=== PATIENT | female | born 1955 | race Caucasian/White ===

== ENCOUNTER 2020-12-02 06:00 | Outpatient (RCR) | payer MEDICARE, OTHER, SELFPAY | END 2020-12-24 23:59 | disposition home or self-care (01) | LOC: GPT 06:00 | PROVIDERS: Referring Provider Neurological Surgery; Visit Provider Neurological Surgery | DX: M54.16 Radiculopathy, lumbar region (principal) | CPT/HCPCS: 97032; 97110; 97140; 97161; 97530 ==

== ENCOUNTER 2020-12-25 06:00 | Outpatient (RCR) | payer MEDICARE, OTHER, SELFPAY | END 2021-01-24 23:59 | disposition home or self-care (01) | LOC: GPT 06:00 | PROVIDERS: Referring Provider Neurological Surgery; Visit Provider Neurological Surgery | DX: M54.16 Radiculopathy, lumbar region (principal) | CPT/HCPCS: 97032; 97110; 97112; 97116; 97140; 97164; 97530 ==

== ENCOUNTER 2021-01-25 06:00 | Outpatient (RCR) | payer MEDICARE, OTHER, SELFPAY | END 2021-02-23 23:59 | disposition home or self-care (01) | LOC: GPT 06:00 | PROVIDERS: Referring Provider Neurological Surgery; Visit Provider Neurological Surgery | DX: M54.16 Radiculopathy, lumbar region (principal) | CPT/HCPCS: 97032; 97110; 97112; 97140; 97164; 97530 ==

== ENCOUNTER 2021-02-24 06:00 | Outpatient (RCR) | payer MEDICARE, OTHER, SELFPAY | END 2021-03-26 23:59 | disposition home or self-care (01) | LOC: GPT 06:00 | PROVIDERS: Referring Provider Neurological Surgery; Visit Provider Neurological Surgery | DX: M54.16 Radiculopathy, lumbar region (principal) | CPT/HCPCS: 97032; 97110; 97112; 97140; 97530 ==

== ENCOUNTER → 2021-04-08 13:14 | Outpatient (BNVA) | payer MEDICARE, OTHER, SELFPAY | PROVIDERS: Visit Provider Nurse Practitioner Family | DX: Z20.822 Contact with and (suspected) exposure to COVID-19 (principal) | CPT/HCPCS: 87635 ==

== ENCOUNTER → 2021-07-13 13:59 | Outpatient (BNVA) | payer MEDICARE, OTHER, SELFPAY | PROVIDERS: Visit Provider Nurse Practitioner Family | DX: Z20.822 Contact with and (suspected) exposure to COVID-19 (principal) | CPT/HCPCS: 87635 ==

== ENCOUNTER 2022-02-21 06:00 | Outpatient (RCR) | payer MEDICARE, OTHER, SELFPAY | END 2022-02-23 23:59 | disposition home or self-care (01) | LOC: GPT 06:00 | PROVIDERS: Referring Provider Physician Assistant; Visit Provider Physician Assistant | DX: Z47.89 Encounter for other orthopedic aftercare (principal); Z98.890 Other specified postprocedural states | CPT/HCPCS: 97032; 97110; 97140; 97162 ==

== ENCOUNTER 2022-02-24 06:00 | Outpatient (RCR) | payer MEDICARE, OTHER, SELFPAY | END 2022-03-26 23:59 | disposition home or self-care (01) | LOC: GPT 06:00 | PROVIDERS: Referring Provider Physician Assistant; Visit Provider Physician Assistant | DX: Z47.89 Encounter for other orthopedic aftercare (principal); Z98.890 Other specified postprocedural states | CPT/HCPCS: 97110; 97112; 97140; G0283 ==

== ENCOUNTER 2022-03-27 06:00 | Outpatient (RCR) | payer MEDICARE, OTHER, SELFPAY | END 2022-04-26 23:59 | disposition home or self-care (01) | LOC: GPT 06:00 | PROVIDERS: Referring Provider Physician Assistant; Visit Provider Physician Assistant | DX: Z98.890 Other specified postprocedural states (principal) | CPT/HCPCS: 97110; 97112; 97140; 97164; G0283 ==

== ENCOUNTER 2022-04-27 06:00 | Outpatient (RCR) | payer MEDICARE, OTHER, SELFPAY | END 2022-05-26 23:59 | disposition home or self-care (01) | LOC: GPT 06:00 | PROVIDERS: Visit Provider Physician Assistant | DX: Z98.890 Other specified postprocedural states (principal) | CPT/HCPCS: 97110; 97112; 97140 ==

== ENCOUNTER 2022-05-27 06:00 | Outpatient (RCR) | payer MEDICARE, OTHER, SELFPAY | END 2022-06-26 23:59 | disposition home or self-care (01) | LOC: GPT 06:00 | PROVIDERS: Visit Provider Physician Assistant | DX: Z98.890 Other specified postprocedural states (principal) | CPT/HCPCS: 97110; 97140; 97164; G0283 ==

== ENCOUNTER → 2022-09-13 10:57 | Outpatient (BNVA) | payer MEDICARE, OTHER, SELFPAY | PROVIDERS: Visit Provider Specialist | DX: G43.711 Chronic migraine without aura, intractable, with status migrainosus (principal); F07.81 Postconcussional syndrome; G44.309 Post-traumatic headache, unspecified, not intractable; R20.0 Anesthesia of skin; R20.2 Paresthesia of skin; M54.2 Cervicalgia; M54.50 Low back pain, unspecified; R41.89 Other symptoms and signs involving cognitive functions and awareness; M43.26 Fusion of spine, lumbar region | CPT/HCPCS: 96116; 99205 ==

== ENCOUNTER 2022-10-04 13:54 | Outpatient (CLI) | payer MEDICARE, OTHER, SELFPAY ==
--- NOTE | 2022-10-04 14:30 | MR_ITS ---
WS: [id number] MRI CERVICAL SPINE NONCONTRAST TECHNIQUE: Sagittal T1, T2 and STIR imaging. Axial T2, gradient, and fiesta imaging. CLINICAL INFORMATION: F07.81 - Postconcussional syndrome COMPARISON: None. FINDINGS: Straightening of the normal cervical lordosis. Slight anterolisthesis C7 on T1. Cord signal is normal . C2-C3: Mild facet arthropathy. Mild bilateral bony foraminal narrowing. Spinal canal is patent. C3-C4: Disc osteophytic ridging. Moderate LEFT facet arthropathy. Mild LEFT and no RIGHT foraminal na rrowing. Spinal canal is patent. C4-C5: Moderate LEFT bony foraminal narrowing. Moderate LEFT facet arthropathy. Spinal canal is paten t. RIGHT foramen is patent. C5-C6: Disc osteophytic ridging. Slight effacement of ventral thecal sac. C6-C7: Mild disc bulging. Mild LEFT foraminal narrowing. Spinal canal and RIGHT foramen are patent. M ild facet arthropathy. C7-T1: Slight anterolisthesis C7 on T1. Mild disc bulging. Mild RIGHT greater than LEFT bony foramina l narrowing. Mild facet arthropathy. Visualized brain stem structures: Normal. Prevertebral soft tissues: Normal. MR/MR cervical spin wo con* [id number] IMPRESSION: 1. Straightening of the normal cervical lordosis. Cord signal is normal. 2. No significant central canal stenosis. 3. Moderate LEFT bony foraminal narrowing LEFT C4-C5, recommend correlation LE FT C5 nerve root symptoms. Moderate LEFT facet arthropathy at this level. 4. Otherwise mild foraminal narrowing described above. 5. Mild disc bulging C4-C5 and C5-C6. Shallow central protrusion C5-C6 with sl ight effacement of ventral thecal sac. 6. Trace anterolisthesis C3 on C4. Grade 1 anterolisthesis C7 on T1.
--- NOTE | 2022-10-04 15:15 | MR_ITS ---
WS: [id number] MRI LUMBAR SPINE NONCONTRAST HISTORY: F07.81 - Postconcussional syndrome COMPARISON: None available. TECHNIQUE: Sagittal and axial multisequence imaging is submitted. Mild increase in thoracic kyphosis. Increase in the lumbar lordosis. Prior posterior lumbar fusion from L3 through L5. Large laminectomy defect at the L3 and L4 levels. Moderate disc space narrowing at L4-5. No acute fractures. Conus terminates normally at L1-2 disc level. There is a small amount of increased T2 signal in the soft tissues at the L4-5 disc level. Edema exte nds inferiorly toward the sacrum. This is in the paravertebral soft tissues and may be a small amount of soft tissue injury. There is slight increased amount of fluid signal extending to the LEFT sofia ctomy defect and facet joint on the LEFT at L4-5. L1-L2: Slight retrolisthesis of L1. Bilateral facet joint arthritis, RIGHT greater than LEFT. Very mi ld subarticular recess and foraminal narrowing. L2-L3: Mild annular disc bulge with a LEFT foraminal disc protrusion. Asymmetric ligamentum flavum hy pertrophy encroaching into the thecal sac and facet joint arthritis. Moderate central and bilateral s ubarticular recess stenosis. Mild bilateral foraminal stenosis. L3-L4: Large posterior laminectomy defect. No stenosis or disc protrusions. L4-L5: Widely patent thecal sac with clumping of the nerve roots. Large posterior laminectomy defect. Small vertebral body foraminal osteophytes encroach towards the subarticular recesses. No significan t stenosis identified. L5-S1: No stenosis. No disc protrusions. MR/MR lumbar spine wo con* [id number] IMPRESSION: 1. Status post L3-L5 posterior lumbar fusion with laminectomies at L3 and L4. 2. No high-grade central stenosis. 3. LEFT foraminal disc protrusion at L2-3 without significant stenosis. The di sc does not contact the nerve roots. 4. Moderate central and bilateral subarticular recess and mild foraminal steno sis at L2-3. 5. Small amount of edema in the paravertebral soft tissues at the L4-5 level. Edema extends inferior to the upper sacrum. Edema also extends slightly greate r into the LEFT laminectomy defect into the LEFT facet joint. Could be posttrau matic soft tissue injury. The hardware and osseous structures are not well visu alized on MRI due to the artifact from the hardware. The alignment appears appr opriate.
== END 2022-10-04 13:55 | disposition home or self-care (01) ==
LOC: RAD 13:57
PROVIDERS: Visit Provider Specialist
DX: G44.309 Post-traumatic headache, unspecified, not intractable (principal); F07.81 Postconcussional syndrome
CPT/HCPCS: 72141; 72148

== ENCOUNTER → 2022-11-27 11:13 | Outpatient (BNVA) | payer MEDICARE, OTHER, SELFPAY | PROVIDERS: Referring Provider Specialist; Visit Provider Specialist | DX: G43.711 Chronic migraine without aura, intractable, with status migrainosus (principal); G56.03 Carpal tunnel syndrome, bilateral upper limbs; F07.81 Postconcussional syndrome; R41.89 Other symptoms and signs involving cognitive functions and awareness; G56.21 Lesion of ulnar nerve, right upper limb; M54.2 Cervicalgia | CPT/HCPCS: 95910; 95913; 99214 ==

== ENCOUNTER 2022-12-20 06:00 | Outpatient (RCR) | payer MEDICARE, OTHER, SELFPAY | END 2022-12-24 23:59 | disposition home or self-care (01) | LOC: GPT 06:00 | PROVIDERS: Visit Provider Specialist | DX: G56.20 Lesion of ulnar nerve, unspecified upper limb (principal) | CPT/HCPCS: 97110; 97112; 97140; 97161 ==

== ENCOUNTER 2022-12-25 06:00 | Outpatient (RCR) | payer MEDICARE, OTHER, SELFPAY | END 2023-01-24 23:59 | disposition home or self-care (01) | LOC: GPT 06:00 | PROVIDERS: Visit Provider Specialist | DX: M54.50 Low back pain, unspecified (principal) | CPT/HCPCS: 97110; 97112; 97140 ==

== ENCOUNTER 2023-01-25 01:00 | Outpatient (RCR) | payer MEDICARE, OTHER, SELFPAY | END 2023-02-23 23:59 | disposition home or self-care (01) | LOC: GPT 01:00 | PROVIDERS: Visit Provider Specialist | DX: M54.50 Low back pain, unspecified (principal) | CPT/HCPCS: 97110; 97140; 97164; 97530 ==

== ENCOUNTER 2023-02-24 06:00 | Outpatient (RCR) | payer MEDICARE, OTHER, SELFPAY | END 2023-03-26 23:59 | disposition home or self-care (01) | LOC: GPT 06:00 | PROVIDERS: Visit Provider Specialist | DX: M54.50 Low back pain, unspecified (principal) | CPT/HCPCS: 97110; 97140; 97164 ==

== ENCOUNTER → 2023-05-29 13:14 | Outpatient (BNVA) | payer MEDICARE, OTHER, SELFPAY | PROVIDERS: Visit Provider Specialist | DX: M54.50 Low back pain, unspecified (principal); G56.21 Lesion of ulnar nerve, right upper limb; G56.03 Carpal tunnel syndrome, bilateral upper limbs; G43.711 Chronic migraine without aura, intractable, with status migrainosus; F07.81 Postconcussional syndrome | CPT/HCPCS: 99213; 99214 ==

== ENCOUNTER 2023-06-15 06:00 | Outpatient (RCR) | payer MEDICARE, OTHER, SELFPAY | END 2023-06-26 23:59 | disposition home or self-care (01) | LOC: GPT 06:00 | PROVIDERS: Visit Provider Specialist | DX: M54.50 Low back pain, unspecified (principal) | CPT/HCPCS: 97110; 97140; 97162 ==

== ENCOUNTER 2023-06-27 06:00 | Outpatient (RCR) | payer MEDICARE, OTHER, SELFPAY | END 2023-07-26 23:59 | disposition home or self-care (01) | LOC: GPT 06:00 | PROVIDERS: Visit Provider Specialist | DX: M54.50 Low back pain, unspecified (principal) | CPT/HCPCS: 97110; 97112; 97140 ==

== ENCOUNTER 2023-07-27 06:00 | Outpatient (RCR) | payer MEDICARE, OTHER, SELFPAY | END 2023-08-26 23:59 | disposition home or self-care (01) | LOC: GPT 06:00 | PROVIDERS: Visit Provider Specialist | DX: M54.50 Low back pain, unspecified (principal) | CPT/HCPCS: 97110; 97112; 97140; 97164; 97530 ==

== ENCOUNTER 2023-08-27 06:00 | Outpatient (RCR) | payer MEDICARE, OTHER, SELFPAY | END 2023-09-26 23:59 | disposition home or self-care (01) | LOC: GPT 06:00 | PROVIDERS: Visit Provider Specialist | DX: M54.50 Low back pain, unspecified (principal) | CPT/HCPCS: 97032; 97110; 97140 ==

== ENCOUNTER → 2023-09-12 12:22 | Outpatient (BNVA) | payer MEDICARE, OTHER, SELFPAY | PROVIDERS: Visit Provider Specialist | DX: G56.21 Lesion of ulnar nerve, right upper limb (principal); G56.03 Carpal tunnel syndrome, bilateral upper limbs; F07.81 Postconcussional syndrome; G43.711 Chronic migraine without aura, intractable, with status migrainosus; G31.84 Mild cognitive impairment of uncertain or unknown etiology | CPT/HCPCS: 99214 ==

== ENCOUNTER 2023-09-27 06:00 | Outpatient (RCR) | payer MEDICARE, OTHER, SELFPAY | END 2023-10-25 23:59 | disposition home or self-care (01) | LOC: GPT 06:00 | PROVIDERS: Visit Provider Specialist | DX: M54.50 Low back pain, unspecified (principal) | CPT/HCPCS: 97110; 97140; 97164 ==

== ENCOUNTER → 2023-10-18 12:59 | Outpatient (BNVA) | payer MEDICARE, OTHER, SELFPAY | PROVIDERS: Referring Provider Specialist; Visit Provider Student in an Organized Health Care Education/Training Program | DX: G56.03 Carpal tunnel syndrome, bilateral upper limbs (principal); G56.21 Lesion of ulnar nerve, right upper limb | CPT/HCPCS: 99204 ==

== ENCOUNTER 2023-10-26 06:00 | Outpatient (RCR) | payer MEDICARE, OTHER, SELFPAY | END 2023-11-25 23:59 | disposition home or self-care (01) | LOC: GPT 06:00 | PROVIDERS: Visit Provider Specialist | DX: M54.50 Low back pain, unspecified (principal) | CPT/HCPCS: 97110; 97140 ==

== ENCOUNTER 2023-11-22 06:32 | Day surgery (SDC) | payer MEDICARE, OTHER, SELFPAY ==
[2023-11-22] VITALS (11 sets, daily range): BP systolic 105–144; BP diastolic 62–75; PULSE 55–72; RESP 16–18; TEMP 36.2–36.3; O2SAT 9–99; BMI 30.9
--- NOTE | 2023-11-22 07:01 | W.PM.OPSFHP ---
Same Day Surgery H&P Indication for Procedure/HPI DATE OF PROCEDURE: November 22, 2023 CHIEF COMPLAINT/INDICATIONFOR SURGICAL PROCEDURE: Right carpal tunnel syndrome, right cubital tunnel syndrome PREOP DIAGNOSIS: Right carpal tunnel syndrome, right cubital tunnel syndrome PLANNED PROCEDURE: Operation Date: 11/22/23 08:00 Proposed Procedures p Carpal Tunnel Release(Right) - Ralph [place], DO s Cubital Tunnel Release(Right) - Ralph Aurelia, DO s Ulnar Nerve Transposition/ possible(Right) - Ralph Fairbanks [place], DO Medications/Allergies* Home Medications Medication Instructions Recorded Confirmed Type atorvastatin 80 mg tablet 80 mg PO DAILY 04/08/21 11/21/23 History losartan 50 mg tablet 50 mg PO DAILY 04/08/21 11/21/23 History metformin 500 mg tablet 500 mg PO BID 04/08/21 11/21/23 History pantoprazole 40 mg tablet,delayed 40 mg PO DAILY 04/08/21 11/21/23 History release pramipexole 0.5 mg tablet (Mirapex) 0.5 mg PO DAILY 04/08/21 11/21/23 History trazodone 100 mg tablet 100 mg PO DAILY PRN insomnia 04/08/21 11/21/23 History cyanocobalamin (vitamin B-12) 1,000 mcg PO DAILY 09/13/22 11/21/23 History 1,000 mcg capsule potassium chloride 20 mEq oral 20 meq PO DAILY 09/13/22 11/21/23 History packet (Klor-Con) empagliflozin 10 mg tablet 10 mg PO DAILY 05/29/23 11/21/23 History (Jardiance) Allergies/Adverse Reactions Allergy/AdvReac Type Severity Reaction Status Date / Time No Known Allergies Allergy Verified 11/22/23 06:58 Pertinent History/Comorbid Conditions* Social History Smoking and tobacco/nicotine status: never used tobacco/nicotine Alcohol intake: never Substance/Drug Use: never Pertinent Exam Findings alert, oriented x 3, operative site marked and procedure specific exam findings See exam details for office visit 10/18/2023 for orthopedic specific examination which show: Right upper extremity examination normal C-spine ROM No pain. Negative Spurlings Negative Tinel's@ shoulder. Normal ROM Normal ROM elbow. Positive Tinel's@ elbow Right Positive elbow flexion test right Right wrist: Positive median compression test. Positive Tinel's on Positive Phalens Thenar and intrinsic weakness appreciated on examination Recommendations Surgery/Procedure today Other Plans: Plan to proceed to the OR today for right carpal tunnel release and right cubital tunnel release with possible ulnar nerve transposition. Patient understands and Zetts procedure the risk benefits Cacace alternatives of surgery and through shared decision make elects proceed with surgical intervention. All questions answered at this time. Elects proceed with surgery today. Coding Level of Care Code Acute Code for Chg Fwd
[2023-11-22] MEDS: sodium chloride 0.9% 1,000 ML 30 ML IV (07:07)
[2023-11-22] MEDS: acetaminophen 1,000 MG/100 ML PIGGYBACK 400 MG IV (07:08)
[2023-11-22] MEDS: ketorolac 30 mg/mL INJ IVP (07:08)
[2023-11-22 07:09] LABS: Glucose Point of Care 115 mg/dL (70-110)
[2023-11-22] MEDS: scopolamine 1.5 Patch 1 PATCH TRANSDERMA (07:11)
--- NOTE | 2023-11-22 07:17 | P.ANESASSM_ITS ---
Pre-Anesthetic Assessment Height/Weight: Height 1.6 m Weight 79.379 kg Temp Pulse Resp BP Pulse Ox O2 Del Method 97.4 F L 72 18 114/69 97 Room Air 11/22/23 06:50 11/22/23 06:50 11/22/23 06:50 11/22/23 06:50 11/22/23 06:50 11/22/23 06:52 Preop Diagnosis: Right carpal tunnel syndrome, right cubital tunnel syndrome Operation Date: 11/22/23 08:00 Proposed Procedures p Carpal Tunnel Release(Right) - Ralph Pike, DO s Cubital Tunnel Release(Right) - Ralph Aurelia, DO s Ulnar Nerve Transposition/ possible(Right) - Ralph Aurelia, DO Familial anesthetic complications: None Was Beta Niya taken within 24 hours: N/A Was Clonidine taken within 24 hours: N/A Last intake: > 8 hrs Social No alcohol and No tobacco Airway Mallampati: Class II Dentition: false CV/HEM Hypertension GI Gastroesophageal Reflux Disease Metabolic Diabetes Mellitus and Hyperlipidemia Anesthetic Plan ASA status: 3 Anesthesia: General Risk of > 500 ml blood loss (7ml/kg in children): No Medications/Allergies Home Medications Medication Instructions Recorded Confirmed Last Taken Type atorvastatin 80 mg tablet 80 mg PO DAILY 04/08/21 11/21/23 11/21/23 History losartan 50 mg tablet 50 mg PO DAILY 04/08/21 11/21/23 11/21/23 History metformin 500 mg tablet 500 mg PO BID 04/08/21 11/21/23 11/21/23 History pantoprazole 40 mg tablet,delayed 40 mg PO DAILY 04/08/21 11/21/23 11/21/23 History release pramipexole 0.5 mg tablet (Mirapex) 0.5 mg PO DAILY 04/08/21 11/21/23 Unknown History trazodone 100 mg tablet 100 mg PO DAILY PRN insomnia 04/08/21 11/21/23 11/21/23 History cyanocobalamin (vitamin B-12) 1,000 mcg PO DAILY 09/13/22 11/22/23 Unknown History 1,000 mcg capsule potassium chloride 20 mEq oral 20 meq PO DAILY 09/13/22 11/21/23 11/21/23 History packet (Klor-Con) propranolol 10 mg tablet 10 mg PO BID #60 tabs 11/27/22 11/21/23 11/21/23 Rx empagliflozin 10 mg tablet 10 mg PO DAILY 05/29/23 11/21/23 11/21/23 History (Jardiance) galcanezumab-gnlm 120 mg/mL 120 mg SUBCUT ONCE #1 mL 09/12/23 11/22/23 10/24/23 Rx subcutaneous syringe (Emgality) Allergies Allergy/AdvReac Type Severity Reaction Status Date / Time No Known Allergies Allergy Verified 11/22/23 06:58 Current Medications Generic Name Dose Route Start Last Admin Trade Name Freq PRN Reason Stop Dose Admin Sodium Chloride 1,000 mls @ 30 mls/hr 11/22/23 06:45 11/22/23 07:07 Sodium Chloride 0.9% IV 11/23/23 06:44 30 mls/hr .Q24H LION Administration PFSH Anesthesia Social History Smoking and tobacco/nicotine status: never used tobacco/nicotine Alcohol intake: never Substance/Drug Use: never Data Anesthesia Cardiac Studies: No Data to Display
[2023-11-22] MEDS: ceFAZolin 2,000 MG in sodium chloride 0.9% (plus) 50 ML 100 MG IV (08:20)
[2023-11-22] MEDS: lidocaine-epi 1% 20 mL INJ INJECTION (09:09)
[2023-11-22] MEDS: ROPivacaine 0.5% SDV 30 mL 150 MG INJECTION (09:09)
--- NOTE | 2023-11-22 09:14 | W.PM.BPON ---
Date of Procedure: 11/22/2023 Surgeon: Ralph Moses DO It Training Specialist(s): None Procedure(s) performed: Right carpal tunnel release Right cubital tunnel release Findings of the procedure(s): Patient was found to have right carpal tunnel syndrome right cubital tunnel syndrome underwent procedure as planned without any issues or complications Estimated blood loss: 5 mL Specimen(s) removed: None Post-operative diagnosis: None right carpal tunnel syndrome, right cubital tunnel syndrome
--- NOTE | 2023-11-22 09:15 | P.OP_ITS ---
Operative Report Date of procedure: November 22, 2023 Surgeon: Ralph Moses DO Procedure: Preoperative diagnosis right carpal tunnel syndrome, right cubital tunnel syndrome postop Diagnosis: Same Procedure done: Right carpal tunnel release Right?cubital tunnel tunnel release (ulnar nerve decompression at elbow) Surgeon: Ralph Moses DO Estimated blood loss: 5 mL Tourniquet? 18minutes IV fluids: 900 mL Complications: None Findings: See operative report narrative Condition: stable Disposition: same day Brief History: Patient's been seen and worked up in the outpatient setting and findings consistent with preoperative diagnosis.? Patient has right carpal tunnel syndrome as well as right?cubital tunnel syndrome which has been worked up in the outpatient setting has physical exam findings consistent with this as well as confirmatory nerve conduction/EMG nerve conduction study consistent with diagnosis.? Patient's failed conservative treatment.? As result through shared decision making agreed to proceed with? right carpal tunnel and right?cubital tunnel release we talked about treatment options as far as nonoperative and operative intervention.? Understands risk benefits complication alternatives surgical nonsurgical treatment options.? Understanding his risks he agrees to proceed with surgical intervention. Understanding these risks pt agrees to proceed with surgery.? Consent obtained in office. Procedure: Patient seen evaluate in the preoperative holding area.? Consent was reviewed and signed with patient.? Correct extremity marked.? Patient seen evaluated by anesthesia department once cleared for surgery was then taken back to the operative suite placed in supine position all bony prominences well-padded patient properly secured to bed.? right upper extremity placed onto armboard.? Nonsterile tourniquet applied right upper arm.? Patient then underwent anesthesia per the anesthesia department.? Patient's right upper extremity was then prepped and draped in standard orthopedic fashion.? Final timeout performed.? Patient received appropriate preoperative antibiotics. Esmarch was used exsanguinate the right upper extremity.? Tourniquet was insufflated to 250 mmHg. I started with the carpal tunnel release first.? I made a standard open carpal tunnel release starting with the distal most extent in the palm at the Stacy's cardinal line and the incision line was made in line with the fourth ray and ended just distal to the wrist crease.? Sharp scalpel incision was made through skin and subcutaneous tissue I then utilizing self retainer then began to dissect with dissection scissors split longitudinally the palmar fascia.? Next I then utilizing my library serials assistant John retractors subsequently utilizing scalpel feathered through the palmaris brevis as well as through the transverse carpal ligament distally.? Once I encountered the floor of the transverse carpal ligament and entered into the carpal tunnel I then switched to dissection scissors.? Carefully released the distal extent of the transverse carpal ligament to the palmar fat.? Care was to protect the recurrent branch and not injured this during this part of the case.? Next I then placed a Medford underneath the transverse carpal ligament proximally to protect the nerve in the carpal tunnel contents.? And then I subsequently under loupe magnification utilize my dissection scissors to release the transverse carpal ligament into the antebrachial fascia under direct visualization with care to keep my scissors with a curved ulnarly away from the palmar cutaneous branch.? The transverse carpal was then completely decompressed proximally and a Medford was then placed both distally and proximally throughout the carpal tunnel and had complete decompression of the nerve.? The nerve did appear to have hourglass shape as it went through the carpal tunnel.? With significant irritation noted around the nerve.? No masses were noted within the contents of the carpal tunnel.? This completed the carpal tunnel release and then I subsequently irrigated the wound bed and placed a wet Ray-Galina into the incision for later closure. Next marked out the landmarks of the right elbow of the medial epicondyle and olecranon and made a curvilinear incision following the course of the ulnar nerve at the medial aspect of the elbow.? Sharp scalpel incision was made through skin and subcutaneous tissue.? Next I switched to Littler dissection scissors and spread in plane of the medial antebrachial cutaneous nerve branching which was protected throughout this part of the dissection.? Then I directly came down over the fascia and identified the 2 heads of the FCU fascia and split this right in the middle and subsequently identified my ulnar nerve distally.? This was then completely released distally under direct visualization and loupe magnification.? Once the nerve was then identified I then subsequently tracked this proximally and released this through George's ligament as well as complete decompression of the nerve proximally all the way past the intermuscular septum.? The nerve was completely released and decompressed both proximally and distally.? Ulnar nerve neurolysis performed and completed both proximally and distally with dissection scissors.? I then took the elbow through range of motion and there was no instability or subluxating of the ulnar nerve.? This completed?cubital tunnel release.? ?Next the wound bed was thoroughly irrigated.? Tourniquet was deflated.? Hemostasis was satisfactory at the?cubital tunnel release surgery site. I then inspected the carpal tunnel incision and this was found to have satisfactory hemostasis and all this was maintained through bipolar electrocautery.? At this point time I sequentially closed?cubital tunnel site with 3-0 Vicryl suture in a running horizontal mattress nylon stitch.? ? The carpal tunnel release surgery was then closed in standard interrupted mattress fashion.? Dressing was Xeroform 4 x 4's ABD Curlex soft roll and an Chase wrap has a bulky soft dressing. Patient was then awakened from anesthesia and taken to PACU in stable condition. Disposition: Patient taken to PACU in stable condition recovering well.? Patient will receive appropriate discharge instructions as well as pain medication postoperatively.? We will follow-up with me in the office in 2 weeks.? Patient understands agrees with current plan.? All questions answered.? He understands if any questions or concerns and contact the office for follow-up appointment..
[2023-11-22] MEDS: fentaNYL 50 mcg/mL INJ 2mL IVP (09:53)
--- NOTE | 2023-11-22 11:10 | ANE.PACU2 ---
Inpatient post-anesthesia follow up: Airway intact: Yes Vital signs: Temperature 97.2 F Pulse Rate 55 Respiratory Rate 18 Blood Pressure 144/67 Pulse Oximetry 98 Oxygen Delivery Me thod Room Air Oxygen Flow Rate Fraction of Inspir ed Oxygen Hydration adequate: Yes Nausea and vomiting: No Pain level: 1 Mental status: Baseline
== END 2023-11-22 11:10 | disposition home or self-care (01) ==
PROVIDERS: PCP Family Medicine; Visit Provider Student in an Organized Health Care Education/Training Program
PROC: (CPT 64721; principal; 2023-11-22 08:00)
PROC: (CPT 64718; 2023-11-22 08:00)
DX: G56.01 Carpal tunnel syndrome, right upper limb (principal); G56.21 Lesion of ulnar nerve, right upper limb; I10 Essential (primary) hypertension; K21.9 Gastro-esophageal reflux disease without esophagitis; E11.9 Type 2 diabetes mellitus without complications; E78.5 Hyperlipidemia, unspecified; Z79.84 Long term (current) use of oral hypoglycemic drugs
CPT/HCPCS: 64718; 64721; 36416; 82962; J0131; J0690; J1100; J1885; J2405; J2704; J2795; J3010; J7030

== ENCOUNTER → 2023-12-11 07:29 | Outpatient (BNVA) | payer MEDICARE, OTHER, SELFPAY | PROVIDERS: PCP Family Medicine; Visit Provider Student in an Organized Health Care Education/Training Program | DX: G56.03 Carpal tunnel syndrome, bilateral upper limbs (principal); G56.21 Lesion of ulnar nerve, right upper limb; G56.22 Lesion of ulnar nerve, left upper limb | CPT/HCPCS: 99214 ==

== ENCOUNTER → 2023-12-19 09:19 | Outpatient (BNVA) | payer MEDICARE, OTHER, SELFPAY | PROVIDERS: PCP Family Medicine; Visit Provider Specialist | DX: F07.81 Postconcussional syndrome (principal); G31.84 Mild cognitive impairment of uncertain or unknown etiology; G56.03 Carpal tunnel syndrome, bilateral upper limbs; G56.21 Lesion of ulnar nerve, right upper limb | CPT/HCPCS: 99213; 99214 ==

== ENCOUNTER 2024-01-03 06:29 | Day surgery (SDC) | payer MEDICARE, OTHER, SELFPAY ==
[2024-01-03] VITALS (10 sets, daily range): BP systolic 111–157; BP diastolic 73–98; PULSE 76–90; RESP 12–24; TEMP 36.3–36.7; O2SAT 92–98; BMI 30.9
[2024-01-03] MEDS: acetaminophen 1,000 MG/100 ML PIGGYBACK 400 MG IV (06:55)
[2024-01-03] MEDS: sodium chloride 0.9% 1,000 ML 30 ML IV (06:55)
[2024-01-03] MEDS: scopolamine 1.5 Patch 1 PATCH TRANSDERMA (06:56)
[2024-01-03] MEDS: ketorolac 30 mg/mL INJ IVP (06:56)
[2024-01-03 07:06] LABS: Glucose Point of Care 109 mg/dL (70-110)
--- NOTE | 2024-01-03 07:06 | W.PM.OPSUD ---
Surgery/Procedure H&P Update DATE OF PROCEDURE: January 03, 2024 DATE H&P PERFORMED: 12/11/23 H&P UPDATE INFORMATION: I have reviewed H&P completed within last 30 days, I have examined patient prior to procedure and No changes to prior documentation PREOP DIAGNOSIS: Left carpal tunnel syndrome, left cubital tunnel syndrome PRIMARY INDICATION FOR PROCEDURE: Left carpal tunnel syndrome, left cubital tunnel syndrome PLANNED PROCEDURE: Operation Date: 01/03/24 08:00 Proposed Procedures p Carpal Tunnel Release(Left) - DO ata Zhao Cubital Tunnel Release(Left) - DO ata Zhao Ulnar Nerve Transposition possible(Left) - Ralph Moses DO
--- NOTE | 2024-01-03 07:11 | P.ANESASSM_ITS ---
Pre-Anesthetic Assessment Height/Weight: Height 1.6 m Weight 79.379 kg Temp Pulse Resp BP Pulse Ox O2 Del Method 97.4 F L 76 18 157/98 95 Room Air 01/03/24 06:42 01/03/24 06:42 01/03/24 06:42 01/03/24 06:42 01/03/24 06:42 01/03/24 06:43 Preop Diagnosis: Left carpal tunnel syndrome, left cubital tunnel syndrome Operation Date: 01/03/24 08:00 Proposed Procedures p Carpal Tunnel Release(Left) - Ralph Aurelia, DO s Cubital Tunnel Release(Left) - Ralph Cheshire, DO s Ulnar Nerve Transposition possible(Left) - Ralph Aurelia, DO Familial anesthetic complications: None Was Beta Niya taken within 24 hours: N/A Was Clonidine taken within 24 hours: N/A Last intake: Intake Last Liquid Date 01/02/24 Last Liquid Time 23:59 Last Solid Date 01/02/24 Last Solid Time 21:00 Social No alcohol and No tobacco Exam alert, oriented x 3, clear to auscultation bilaterally and regular rate & rhythm Airway Mallampati: Class II Dentition: false CV/HEM Hypertension GI Gastroesophageal Reflux Disease Metabolic Diabetes Mellitus and Hyperlipidemia Anesthetic Plan ASA status: 3 Anesthesia: General Risk of > 500 ml blood loss (7ml/kg in children): No Medications/Allergies Home Medications Medication Instructions Recorded Confirmed Last Taken Type atorvastatin 80 mg tablet 80 mg PO DAILY 04/08/21 01/02/24 01/02/24 History losartan 50 mg tablet 50 mg PO DAILY 04/08/21 01/02/24 01/02/24 History metformin 500 mg tablet 500 mg PO BID 04/08/21 01/02/24 01/02/24 History pantoprazole 40 mg tablet,delayed 40 mg PO DAILY 04/08/21 01/02/24 01/02/24 History release pramipexole 0.5 mg tablet (Mirapex) 0.5 mg PO DAILY 04/08/21 01/02/24 01/02/24 History trazodone 100 mg tablet 100 mg PO BEDTIME PRN insomnia 04/08/21 01/03/24 01/02/24 08:00 History potassium chloride 20 mEq oral 20 meq PO DAILY 09/13/22 01/02/24 01/02/24 History packet (Klor-Con) propranolol 10 mg tablet 10 mg PO BID #60 tabs 11/27/22 01/02/24 01/02/24 Rx empagliflozin 10 mg tablet 10 mg PO DAILY 05/29/23 01/02/24 01/02/24 History (Jardiance) cyanocobalamin (vitamin B-12) 1 ml PO DIRECTED 01/02/24 01/02/24 12/24/23 History 1,000 mcg/mL oral drops (Vitamin B-12) Allergies Allergy/AdvReac Type Severity Reaction Status Date / Time No Known Allergies Allergy Verified 01/02/24 10:28 Current Medications Generic Name Dose Route Start Last Admin Trade Name Freq PRN Reason Stop Dose Admin Sodium Chloride 1,000 mls @ 30 mls/hr 01/03/24 06:45 01/03/24 06:55 Sodium Chloride 0.9% IV 01/04/24 06:44 30 mls/hr .Q24H LION Administration PFSH Anesthesia Social History Smoking and tobacco/nicotine status: never used tobacco/nicotine Alcohol intake: never Substance/Drug Use: never Data Anesthesia Cardiac Studies: No Data to Display
[2024-01-03] MEDS: ceFAZolin 2,000 MG in sodium chloride 0.9% (plus) 50 ML 100 MG IV (07:45)
[2024-01-03] MEDS: lidocaine-epi 1% 20 mL INJ INJECTION (08:12)
[2024-01-03] MEDS: ROPivacaine 0.5% SDV 30 mL 150 MG INJECTION (08:12)
--- NOTE | 2024-01-03 08:42 | P.BOP_ITS ---
Date of Procedure: 01/03/2024 Surgeon: Ralph Moses DO Artificial Teeth Inspector(s): MIRNA Asencio Procedure(s) performed: Left carpal tunnel release Left cubital tunnel release (ulnar nerve decompression at the elbow) Findings of the procedure(s): Patient found to have left carpal tunnel syndrome left cubital tunnel syndrome underwent procedure as planned without issues or complications and no transposition was performed Estimated blood loss: 5 mL Specimen(s) removed: None Post-operative diagnosis: Left carpal tunnel syndrome, left cubital tunnel syndrome
--- NOTE | 2024-01-03 08:43 | PM.OP ---
Operative Report Date of procedure: January 03, 2024 Surgeon: Ralph Moses DO Quality Improvement Coordinator (Rn): MIRNA Asencio?FA necessary for assistance in this case with hand positioning to execute the procedure, retraction and protection of neurovascular structures as well as to assist with wound closure and dressing application. Procedure: Preoperative diagnosis: Left carpal tunnel syndrome, left cubital tunnel syndrome Postop Diagnosis: Same Procedure done: Left carpal tunnel release Left cubital tunnel tunnel release (ulnar nerve decompression at elbow) Surgeon: Ralph Moses DO Estimated blood loss: 5 mL Tourniquet? 25 minutes IV fluids: 700 mL Complications: None Findings: See operative report narrative Condition: stable Disposition: same day Brief History: Patient's been seen and worked up in the outpatient setting and findings consistent with preoperative diagnosis.? Patient has Left carpal tunnel syndrome as well as Left cubital tunnel syndrome which has been worked up in the outpatient setting has physical exam findings consistent with this as well as confirmatory nerve conduction/EMG nerve conduction study consistent with diagnosis.? Patient's failed conservative treatment.? As result through shared decision making agreed to proceed with? Left carpal tunnel and Left cubital tunnel release possible nerve transposition we talked about treatment options as far as nonoperative and operative intervention.? Understands risk benefits complication alternatives surgical nonsurgical treatment options.? Understanding risks patient agrees to proceed with surgical intervention. Understanding these risks patient agrees to proceed with surgery.? Consent obtained in office. Procedure: Patient seen evaluate in the preoperative holding area.? Consent was reviewed and signed with patient.? Correct extremity marked.? Patient seen evaluated by anesthesia department once cleared for surgery was then taken back to the operative suite placed in supine position all bony prominences well-padded patient properly secured to bed.? Left upper extremity placed onto armboard.? Nonsterile tourniquet applied Left upper arm.? Patient then underwent anesthesia per the anesthesia department.? Patient's Left upper extremity was then prepped and draped in standard orthopedic fashion.? Final timeout performed.? Patient received appropriate preoperative antibiotics. Esmarch was used exsanguinate the Left upper extremity.? Tourniquet was insufflated to 250 mmHg. I started with the carpal tunnel release first.? I made a standard open carpal tunnel release starting with the distal most extent in the palm at the Stacy's cardinal line and the incision line was made in line with the fourth ray and ended just distal to the wrist crease.? Sharp scalpel incision was made through skin and subcutaneous tissue I then utilizing self retainer then began to dissect with dissection scissors split longitudinally the palmar fascia.? Next I then utilizing my surgical assistant John retractors subsequently utilizing scalpel feathered through the palmaris brevis as well as through the transverse carpal ligament distally.? Once I encountered the floor of the transverse carpal ligament and entered into the carpal tunnel I then switched to dissection scissors.? Carefully released the distal extent of the transverse carpal ligament to the palmar fat.? Care was to protect the recurrent branch and not injured this during this part of the case.? Next I then placed a [place] underneath the transverse carpal ligament proximally to protect the nerve in the carpal tunnel contents.? And then I subsequently under loupe magnification utilize my dissection scissors to release the transverse carpal ligament into the antebrachial fascia under direct visualization with care to keep my scissors with a curved ulnarly away from the palmar cutaneous branch.? The transverse carpal was then completely decompressed proximally and a [place] was then placed both distally and proximally throughout the carpal tunnel and had complete decompression of the nerve.? The nerve did appear to have hourglass shape as it went through the carpal tunnel.? With significant irritation noted around the nerve.? No masses were noted within the contents of the carpal tunnel.? This completed the carpal tunnel release and then I subsequently irrigated the wound bed and placed a wet Ray-Galina into the incision for later closure. Next marked out the landmarks of the Left elbow of the medial epicondyle and olecranon and made a curvilinear incision following the course of the ulnar nerve at the medial aspect of the elbow.? Sharp scalpel incision was made through skin and subcutaneous tissue.? Next I switched to Littler dissection scissors and spread in plane of the medial antebrachial cutaneous nerve branching which was protected throughout this part of the dissection.? Then I directly came down over the fascia and identified the 2 heads of the FCU fascia and split this in the middle and subsequently identified my ulnar nerve distally.? This was then completely released distally under direct visualization and loupe magnification.? Once the nerve was then identified I then subsequently tracked this proximally and released this through George's ligament as well as complete decompression of the nerve proximally all the way past the intermuscular septum.? The nerve was completely released and decompressed both proximally and distally.? Ulnar nerve neurolysis performed and completed both proximally and distally with dissection scissors.? I then took the elbow through range of motion and there was no instability or subluxating of the ulnar nerve.? This completed cubital tunnel release.? ?Next the wound bed was thoroughly irrigated.? Tourniquet was deflated.? Hemostasis was satisfactory at the cubital tunnel release surgery site. I then inspected the carpal tunnel incision and this was found to have satisfactory hemostasis and all this was maintained through bipolar electrocautery.? At this point time I sequentially closed cubital tunnel site with 3-0 Vicryl suture in a running horizontal mattress nylon stitch.? ? The carpal tunnel release surgery was then closed in standard interrupted mattress fashion.? Dressing was Xeroform 4 x 4's ABD Curlex soft roll and an Chase wrap has a bulky soft dressing. Patient was then awakened from anesthesia and taken to PACU in stable condition. Disposition: Patient taken to PACU in stable condition recovering well.? Patient will receive appropriate discharge instructions as well as pain medication postoperatively.? We will follow-up with me in the office in 2 weeks.? Patient understands agrees with current plan.? All questions answered.? He understands if any questions or concerns and contact the office for follow-up appointment..
--- NOTE | 2024-01-03 10:00 | ANE.PACU2 ---
Inpatient post-anesthesia follow up: Airway intact: Yes Vital signs: Temperature 97.7 F Pulse Rate 82 Respiratory Rate 16 Blood Pressure 119/83 Pulse Oximetry 96 Oxygen Delivery Me thod Room Air Oxygen Flow Rate 10 Fraction of Inspir ed Oxygen Hydration adequate: Yes Nausea and vomiting: No Pain level: 1 Mental status: Baseline
== END 2024-01-03 10:00 | disposition home or self-care (01) ==
PROVIDERS: PCP Family Medicine; Visit Provider Student in an Organized Health Care Education/Training Program
PROC: (CPT 64721; principal; 2024-01-03 08:00)
PROC: (CPT 64718; 2024-01-03 08:00)
DX: G56.02 Carpal tunnel syndrome, left upper limb (principal); G56.22 Lesion of ulnar nerve, left upper limb; I10 Essential (primary) hypertension; K21.9 Gastro-esophageal reflux disease without esophagitis; E11.9 Type 2 diabetes mellitus without complications; E78.5 Hyperlipidemia, unspecified
CPT/HCPCS: 64718; 64721; 36416; 82962; J0131; J0690; J1100; J1885; J2371; J2405; J2704; J2795; J3010; J3490; J7030

== ENCOUNTER → 2024-01-22 13:31 | Outpatient (BNVA) | payer MEDICARE, OTHER, SELFPAY | PROVIDERS: PCP Family Medicine; Visit Provider Physician Assistant | DX: Z98.890 Other specified postprocedural states (principal) | CPT/HCPCS: 99024 ==

== ENCOUNTER → 2024-06-25 11:52 | Outpatient (BNVA) | payer MEDICARE, OTHER, SELFPAY | PROVIDERS: PCP Family Medicine; Visit Provider Specialist | DX: F07.81 Postconcussional syndrome (principal); G31.84 Mild cognitive impairment of uncertain or unknown etiology; G56.03 Carpal tunnel syndrome, bilateral upper limbs; G56.21 Lesion of ulnar nerve, right upper limb; R03.0 Elevated blood-pressure reading, without diagnosis of hypertension | CPT/HCPCS: 99214 ==

== ENCOUNTER → 2024-12-24 09:31 | Outpatient (BNVA) | payer MEDICARE, OTHER, SELFPAY | PROVIDERS: PCP Family Medicine; Visit Provider Specialist | DX: F07.81 Postconcussional syndrome (principal); G31.84 Mild cognitive impairment of uncertain or unknown etiology; G56.03 Carpal tunnel syndrome, bilateral upper limbs; G56.21 Lesion of ulnar nerve, right upper limb; R03.0 Elevated blood-pressure reading, without diagnosis of hypertension | CPT/HCPCS: 99214 ==